=== PATIENT | male | born 1970 | race Two or more races ===

== ENCOUNTER 2021-01-02 22:42 | Emergency (ER) | payer SELFPAY ==
[~2021-01-02] VITALS: Ht 172.7 cm; Wt 84.1 kg
[2021-01-02 22:48] VITALS: BP 141/81
[2021-01-02] MEDS ORDERED: PERTUSS(ACELL),DIPH,TET VAC/PF 0.5 ML SYRINGE IM. ONE (23:30)
== END 2021-01-03 00:01 | disposition home or self-care (01) ==
LOC: EMS 22:45
DX: Z23 Encounter for immunization (principal); Z48.00 Encounter for change or removal of nonsurgical wound dressing
CPT/HCPCS: 90471; 90715; 99283

== ENCOUNTER 2021-07-01 22:42 | Emergency (ER) | payer MEDICAID, OTHER ==
[~2021-07-01] VITALS: Ht 172.7 cm; Wt 86.4 kg
[2021-07-02 00:28] VITALS: BP 150/98
== END 2021-07-02 00:45 | disposition home or self-care (01) ==
LOC: EMS 22:44
DX: L03.011 Cellulitis of right finger (principal); B35.0 Tinea barbae and tinea capitis
CPT/HCPCS: 10160; 99284; Z7502

== ENCOUNTER 2023-04-17 00:35 | Emergency (ER) | payer OTHER ==
[~2023-04-17] VITALS: Ht 172.7 cm; Wt 89.0 kg
[2023-04-17 00:38] VITALS: TEMP 98.7
[2023-04-17] MEDS ORDERED: BACTDSB PO (01:50)
[2023-04-17] MEDS ORDERED: CEPH-558 PO (01:50)
[2023-04-17 02:00] VITALS: BP 134/79; PULSE 71; RESP 17
[2023-04-17] MEDS ORDERED: CefTRIAXone SODIUM 1 GM/VIAL IM ONE (02:00)
[2023-04-17] MEDS ORDERED: LIDOCAINE/PF 1% 2 ML VIAL IM ONE (02:00)
== END 2023-04-17 02:18 | disposition home or self-care (01) ==
LOC: EMS 00:51
DX: M79.644 Pain in right finger(s) (principal); L03.011 Cellulitis of right finger; E78.00 Pure hypercholesterolemia, unspecified; F17.210 Nicotine dependence, cigarettes, uncomplicated
CPT/HCPCS: 99283; 96372; J0696; J3490

== ENCOUNTER 2025-02-18 21:58 | Emergency (ER) | payer MEDICAID, OTHER ==
[~2025-02-18] VITALS: Ht 172.7 cm; Wt 88.6 kg
[~2025-02-18 21:58] MED LIST: BACTDSB PO; CEPH-558 PO
[2025-02-18] MEDS: LOPERAMIDE HCL 2 MG CAPSULE PO ONE (22:49)
[2025-02-18] MEDS: IBUPROFEN 400 MG TABLET PO ONE (22:49)
[2025-02-18] MEDS: DOXYCYCLINE HYCLATE 100 MG TABLET PO ONE (22:49)
[2025-02-18] MEDS: SIMETHICONE 80 MG CHEWABLE TABLET CHEW ONE (22:50)
[2025-02-18 23:00] VITALS: BP 137/77; PULSE 74; RESP 16; TEMP 97.3; O2SAT 98
[2025-02-18] MEDS ORDERED: CEPH-558 PO (23:07)
[2025-02-18] MEDS ORDERED: DOXY-354 PO (23:07)
[2025-02-18] MEDS ORDERED: LOPE-232 PO (23:07)
== END 2025-02-19 00:25 | disposition home or self-care (01) ==
LOC: EMS 22:04
DX: L02.214 Cutaneous abscess of groin (principal); R19.7 Diarrhea, unspecified; E78.00 Pure hypercholesterolemia, unspecified; F17.210 Nicotine dependence, cigarettes, uncomplicated; Z79.899 Other long term (current) drug therapy
CPT/HCPCS: 99284; Z7502; Z7610